=== PATIENT | female | born 2000 | race Caucasian/White ===

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

== ENCOUNTER 2023-04-21 11:15 | Emergency (ER) | payer OTHER ==
[2023-04-21 11:32] VITALS: BP 118/74; PULSE 92; RESP 17; TEMP 98.1; BMI 33.3
[2023-04-21 13:48] LABS: BASO % 0.2 % (0-2.0); EOS % 0.6 % (0-4.5); HEMATOCRIT 28.5 % (32.4-45.2); HEMOGLOBIN 8.9 GM/dL (10.7-15.3); LYMPH % 17.5 % (8-40); MCHC 31.3 g/dl (32.0-36.0); MEAN CELL VOLUME 59.5 fl (80-96); MONO % 4.3 % (3.8-10.2); NEUT % 77.4 % (42.8-82.8); PLATELET COUNT 404 10^3/uL (134-434); RBC 4.79 M/mm3 (3.60-5.2); RDW 18.6 % (11.6-15.6); WHITE BLOOD COUNT 10.6 K/mm3 (4.0-10.0)
[2023-04-21 13:49] LABS: MCH 18.6 pg (25.7-33.7)
[2023-04-21 14:08] LABS: POTASSIUM 3.5 mmol/L (3.5-5.1)
[2023-04-21 14:11] LABS: CALCIUM 9.1 mg/dL (8.5-10.1)
[2023-04-21 14:12] LABS: BLOOD UREA NITROGEN 13.1 mg/dL (7-18)
[2023-04-21 14:14] LABS: CREATININE 0.7 mg/dL (0.55-1.3)
[2023-04-21 14:41] LABS: ANISOCYTOSIS 0; MACROCYTOSIS 0
[2023-04-21] MEDS ORDERED: CLINDAMYCIN HCL 300 MG CAPSULE PO ONE (15:32)
[2023-04-21] MEDS ORDERED: CLINDAMYCIN HCL 150 MG CAPSULE (FP) ONE (15:33)
== END 2023-04-21 15:40 | disposition home or self-care (01) ==
LOC: JERFT 11:15
DX: L02.411 Cutaneous abscess of right axilla (principal); R22.31 Localized swelling, mass and lump, right upper limb; M79.601 Pain in right arm
CPT/HCPCS: 36415; 76882-TC-RT-FY; 80048; 85025; 87040; 99284-25